=== PATIENT | male | born 1960 | race Caucasian/White ===

== ENCOUNTER 2022-01-10 08:15 | Observation (INO) ==
--- NOTE | 2021-12-21 15:57 | PAT Medication Instructions ---
Medication Instructions Date of Service December 21, 2021 Home Medications allopurinol 300 mg tablet 300 mg PO QAM esomeprazole magnesium 20 mg capsule,delayed release (Nexium) 20 mg PO QAM naproxen sodium 220 mg tablet 440 mg PO BID PRN omega-3 fatty acids 1,000 mg PO QAM ASK your surgeon for instructions naproxen sodium 220 mg tablet 440 mg PO BID PRN STOP taking 2 weeks before surgery (or as soon as possible if surgery is within 2 weeks) omega-3 fatty acids 1,000 mg PO QAM Take morning of surgery With a small sip of water, OTHERWISE NOTHING TO EAT OR DRINK AFTER MIDNIGHT: allopurinol 300 mg tablet 300 mg PO QAM esomeprazole magnesium 20 mg capsule,delayed release (Nexium) 20 mg PO QAM Other Notes If you have any questions please call us at [phone] or [phone] or [phone] or [phone]
--- NOTE | 2021-12-26 13:40 | Anesthesiology Consultation ---
Date of Service December 26, 2021 Assessment & Plan (1) Encounter for pre-operative examination: - COVID screening: Per assessment on : No known COVID-19 positive contacts or current COVID-19 related symptoms. Travel screen negative. Patient vaccinated. Surgeon arranging preop COVID testing. Awaiting results. - PCP office visit (12/20/21): "Pt had sleep study showing severe sleep apnea. Pulm recommended attended titration but insurance denied.. Explained risks of sleep apnea for his health in general but faviola w general anesthesia. Paperwork from [facility] says General/block for anesthesia. Clearance for surgery pending his apnea treatment and review of labs.. Pt may be having preop testing at [facility] on 12/27." Reviewed with patient that plan would likely be for SAB/block. Anesthesia questions/concerns addressed. 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 Patient subsequently seen by pulm who recommended CPAP. Patient states that there is current CPAP shortages and he is working with insurance to obtain device/start but has been having difficulties. Will forward preop testing to PCP and update them regarding patient's current issues with obtaining NACHO device. Awaiting final PCP clearance (Aliyah Desai PAC/PH Family medicine). Chart Review Chart Review: Patient seen in Pre Admission Testing Teaching & Discussion Pre-Anesthesia Teaching/Discussion Notes: Instructed NPO after midnight before surgery,except medications with 15 cc of water. Medication instructions provided according to the PAT guidelines. History Surgery Operation Date: 01/10/22 10:20 Proposed Procedures p Right Total Knee Arthroplasty - Dwight Patrica Kramer MD Height/Weight Height: 5 ft 6 in Weight: 125.6 kg Allergies Allergy/AdvReac Type Severity Reaction Status Date / Time No Known Allergies Allergy Verified 12/21/21 15:04 Medications Home Medications Medication Instructions Recorded Confirmed Last Taken allopurinol 300 mg tablet 300 mg PO QAM 12/21/21 12/21/21 Unknown calcium 500 mg tablet 500 mg PO QAM 12/21/21 12/21/21 Unknown chlorthalidone 25 mg tablet 25 mg PO QAM 12/21/21 12/21/21 Unknown cholecalciferol (vitamin D3) 25 25 mcg PO QAM 12/21/21 12/21/21 Unknown mcg (1,000 unit) tablet (Vitamin D3) citalopram 20 mg tablet 20 mg PO QAM 12/21/21 12/21/21 Unknown esomeprazole magnesium 20 mg 20 mg PO QAM 12/21/21 12/21/21 Unknown capsule,delayed release (Nexium) glucosamine sulf dipot 1 cap PO QAM 12/21/21 12/21/21 Unknown chlr,msm,chond 550 mg-C 30 mg-aston 1 mg capsule (Glucosamine Chondroitin) losartan 100 mg tablet 100 mg PO QAM 12/21/21 12/21/21 Unknown multivitamin 1 tab PO QAM 12/21/21 12/21/21 Unknown naproxen sodium 220 mg tablet 440 mg PO BID PRN 12/21/21 12/21/21 Unknown omega-3 fatty acids 1,000 mg PO QAM 12/21/21 12/21/21 Unknown Past Medical History Medical History Anxiety Chronic back pain GERD (gastroesophageal reflux disease) Gout Hyperlipidemia Hypertension Morbid obesity Osteoarthritis Sleep apnea Recently diagnosed by using a home test, pulmonary decided to rx CPAP > currently having shortage/issues obtaining Exercise / Class Metabolic Activity II 4-5 Yardwork/Stairs/Walk up hill (one FS (no CP, no SOB)) Past Family History Family History Other No family history of adverse response to anesthesia Past Surgical History Surgical History History of colonoscopy History of esophagogastroduodenoscopy (EGD) S/P right knee arthroscopy Past Anesthesia History No Hx of Anesthesia Complications and No Family Hx of Anesthesia Complications History of PONV No Hx of PONV and Hx of Motion Sickness Social History Smoking Status: Former smoker tobacco type: cigarettes Do You Dip or Chew Tobacco: No Smoking End Date: Quit 2009 Hx Alcohol Use: No Hx Substance Use: No Review of Systems Patient denies chest pain, shortness of breath, dyspnea on exertion, fever, chills, cough, wheezing, palpitations. Physical Exam Vital Signs VITALS BP 117/78 P 82 TEMP 98.3 SP02 96%RA RESP 16 PHYSICAL Full cervical extension range of motion. Full TMJ range of motion. TMD 4 finger breaths, macroglossia Mallampati Score 3 Dentition: missing molar Lungs: clear throughout to auscultation Cardiac: regular rate and rhythm, no murmurs noted Spine: normal Carotid arteries: negative bruit Extremities: no edema Short, thick neck Short franco Lab Results Anesthesia Preop Results Results Anesthesia Widget: WBC 7.74 K/uL (4.8-10.8) 12/26/21 Hgb 14.7 g/dL (14.0-18.0) 12/26/21 Hct 43.6 % (42-52) 12/26/21 Plt 307 K/uL (130-400) 12/26/21 Na 138 mmol/L (136-145) 12/26/21 K 3.7 mmol/L (3.5-5.1) 12/26/21 Cl 102 mmol/L (98-107) 12/26/21 CO2 26 mmol/L (21-32) 12/26/21 BUN 19 mg/dl (6-23) 12/26/21 Creat 1.00 mg/dl (0.6-1.4) 12/26/21 Glucose Level 92 mg/dl (70-99(Fasting)) 12/26/21 PT 10.7 Seconds (9.0-12.0) 12/26/21 PTT 26.0 Seconds (21.0-31.0) 12/26/21 INR 1.0 (0.9-1.1) 12/26/21 Blood Type A Positive 12/26/21 Antibody Screen NEGATIVE 12/26/21 Testing Electrocardiogram Date: 10/07/21 SR at 83bpm. unconfirmed report. Chest X-Ray Date: 12/26/21 Findings: + NAD
[~2022-01-10 08:15] MED LIST: ACETAMINOPHEN 500 MG TAB PO SCH; BUPIVACAINE 0.5 % 5 MG/1 ML PF 10ML VIAL ONE; CeleBREX 200 MG CAP PO SCH; GABAPENTIN 600 MG DOSE PO SCH; LR 500ML BOLUS, THEN 15ML/HR IV SCH; LR 60ML/HR IV SCH; ROPIVACAINE 0.5% 5 MG/ML 30 ML VIAL ONE; ROPIVACAINE 0.5% HCL/PF 150 MG, BUPIVACAINE 0.75% MPF 20 ML, EPINEPHrine 0.15 MG, Ketor... INFIL SCH; Scopolamine 1 MG TDSY TD SCH; TRANEXAMIC ACID 1,000 MG **IV Intra-op IV SCH; TRANEXAMIC ACID 1,000 MG **IV Pre-op IV SCH; ceFAZolin 2000MG 2,000 MG/15 ML SYR IV SCH; dexAMETHasone 4 MG TAB PO SCH; oxyCODONE HCL 10 MG TABCR (OxyCONTIN) PO SCH
[2022-01-10] MEDS ORDERED: DEXAMETHASONE SOD INJ 4 MG/ML VIAL ONE (08:28)
[2022-01-10] MEDS ORDERED: fentaNYL citrate 100 MCG/2 ML VIAL ONE (08:28)
[2022-01-10] MEDS ORDERED: MIDAZOLAM HCL 1 MG/ML 2ML VIAL ONE (08:28)
[2022-01-10] MEDS ORDERED: PROPOFOL IV EMULSION 10 MG/ML 20 ML VIAL IV ONE ×3 (08:28→12:48)
[2022-01-10] MEDS ORDERED: LIDOCAINE 2% 2 ML VIAL/AMP(20MG/ML) INFIL ONE (08:28)
[2022-01-10] MEDS ORDERED: fentaNYL citrate 100 MCG/2 ML VIAL IV PRN (09:05)
[2022-01-10] MEDS ORDERED: ePHEDrine sulfate 50 MG/ML AMP IV PRN (09:05)
[2022-01-10] MEDS ORDERED: ONDANSETRON INJ 2 MG/ML 2 ML VIAL IV PRN ×2 (09:05→13:07)
[2022-01-10] MEDS ORDERED: ATROPINE SULFATE 0.1 MG/ML 10ML SYR IV PRN (09:05)
--- NOTE | 2022-01-10 09:24 | History & Physical Bridge Note ---
Date of Service January 10, 2022 History & Physical Bridge Note I have examined the patient, reviewed the History & Physical and in the interval since the performance of the History & Physical I have noted the following changes of clinical significance: no changes noted Patient is aware of the risks, is asymptomatic, and tested negative for COVID.
[2022-01-10] MEDS ORDERED: ORTHO JOINT ANESTHETIC ONE (09:37)
[2022-01-10] MEDS ORDERED: KETAMINE 50 MG/5 ML SYRINGE ONE (10:42)
--- NOTE | 2022-01-10 12:50 | Post Operative Brief Note ---
Immediate Post Op Note v1 Date of Surgery January 10, 2022 Pre & Post Diagnosis Operation Date: 01/10/22 10:20 Pre-Op Diagnosis: Right Knee Osteoarthritis Post-Op Diagnosis: Right Knee Osteoarthritis I identified the patient and participated in the time-out.: Yes Procedure Operation Date: 01/10/22 10:20 Actual Procedures p Right Total Knee Arthroplasty(Right) - Dwight Kramer MD Surgeon Dwight Kramer MD General Utility Machine Operator M Day, PAC(No fellow avail) Estimated Blood Loss 110 Findings Consistent with Post-Op Diagnosis Fluids 2000 cc Specimens Right knee contents Anesthesia Type MAC Spinal Regional Complications none
--- NOTE | 2022-01-10 12:51 | Operative Report ---
Post Operative Report Pre & Post Diagnosis Operation Date: 01/10/22 10:20 Pre-Op Diagnosis: Right Knee Osteoarthritis Post-Op Diagnosis: Right Knee Osteoarthritis I identified the patient and participated in the time-out.: Yes Procedure Operation Date: 01/10/22 10:20 Actual Procedures p Right Total Knee Arthroplasty(Right) - Dwight Kramer MD Surgeon Dwight Kramer MD Vineyardist Nayana Mallory PA-C (No fellow avail) Estimated Blood Loss 110 Findings See Below Examined Under Anesthesia: ROM -- There was 5 degrees to 105 degrees of flexion Ligamentous examination -- revealed stable Darryl, posterior drawer, varus and valgus stress at 5 and 30 degrees. [place] Type IV changes of Medial compartment & Patellofemoral compartment, Type II changes lateral compartment. Fluids 2000 cc Specimens Right knee contents Anesthesia Type MAC Spinal Regional Complications none Indications This is a 61-year-old male who has clinical and radiographic findings consistent with osteoarthritis of the a right knee. I recommended that a right total knee replacement be performed. The patient understands the risks of surgery, which include but not limited to: bleeding, infection, re-operation, damage to nerves and arteries, continued knee pain, knee stiffness, DVT, and . The patient understands all of these instructions and explanations, all of his questions have been satisfactorily addressed and the patient has elected to proceed. Informed consent was signed. Description of Procedure IMPLANTS: 1. Femur: Triathlon #5 Right PS. 2. Tibia: Triathlon #4 [place]. 3. Insert: Triathlon #4 x 9 mm PS X3 poly. 4. Patella: Triathlon A38 x 11 mm X3 poly. 5. Simplex cement. Nayana Mallory PA-C is assisting with positioning, retracting, and closure due to fellow not available. Procedure: The patient was taken to the Operating Room and placed in the supine position after spinal and adductor canal nerve block was administered. My initials and a multidisciplinary time-out were used to identify the right leg as the correct operative limb. A tourniquet was placed high in the thigh. Prior to the incision, 2 grams of intravenous Ancef were given. The right leg was then prepped and draped in a standard sterile fashion. An Esmarch was used to exsanguinate the leg and the tourniquet was inflated to 250 mmHg. The planned mid-line 20 cm incision was created exposing the extensor mechanism. The medial parapatellar arthrotomy was made and the patella was everted. The patella was addressed first. It was prepared by reaming from 23 mm down to 12 mm. An A38 button was found to fit best. The peg holes were made in the standard fashion. The femur was addressed next and the guide david was placed intramedullary. The initial cutting block was placed with 5 degrees of valgus and removing 10 mm for the distal cut. The cut was made and the 4-in-1 cutting block for a size 5 femur was placed. These cuts and the cuts to place the box were made in the standard fashion. Our attention was then drawn to the tibia cut with the external cutting guide, taking 2 mm from the medial low side. There was sufficient extension and flexion gap to fit a 9 mm spacer. A #4 Tibial baseplate fit well. A trial with a 9 mm spacer showed excellent stability in both flexion and extension, with good ligament balance, and thumbs free patellar tracking. Range of motion of 0- 120 degrees. The tibial baseplate was prepped for the keel and stem. All the trial components were tested again, with good stability and thumbs free tracking of the patella. All components were removed. The tourniquet was deflated. Hemostasis was obtained. 90 ml of total knee cocktail were injected into the soft tissues and periosteum. A bone plug was placed in the femur and covered with bone wax. After a 15 minute break, the limb was exsanguinated again and the tourniquet was re-inflated. All surfaces were copiously irrigated prior to placement of the components. The femoral component followed by Tibial baseplate were cemented in place and the 9 mm X3 poly was placed. Next, the patellar button was placed using the same Simplex cement. Once the cement had cured, the range of motion and stability were unchanged. The extensor mechanism was closed with 1-0 and 0 Vicryl with the knee bent approximately 60 degrees in a standard fashion. The peritenon and deep fascia was closed with 2-0 Vicryl. The subcutaneous layer was closed with 3-0 Vicryl. The skin was closed with Zipline and shield. The limb was cleaned and dried. 4x4 dressing was placed over top followed by ABDs, sterile Webril, and a foot to thigh Jefry bandage. The patient was then transferred to the Recovery Room in stable condition. The sponge and needle counts were correct. POST-OP INSTRUCTIONS: The patient will be WBAT. The patient will be admitted to the hospital.Labs will be obtained during the stay. DVT prophylaxis will included aspirin for 6 weeks, TEDs, and mechanical foot pumps. The dressing will be changed prior to their discharge or postop day #2 and covered with a Silverlon dressing, whichever comes first. I attest to the content of the Intraoperative Record and any orders documented therein. Any exceptions are noted below.
[2022-01-10] MEDS ORDERED: NALOXONE HCL 0.4 MG/1 ML VIAL/CARP IV PRN (13:07)
[2022-01-10] MEDS ORDERED: bisacodyL 10 MG SUPP PR PRN (13:07)
[2022-01-10] MEDS ORDERED: MAGNESIUM HYDROXIDE SUSP 30 ML UDC PO PRN (13:07)
[2022-01-10] MEDS ORDERED: METOCLOPRAMIDE HCL INJ 5 MG/ML 2 ML VIAL IV PRN (13:07)
[2022-01-10] MEDS ORDERED: HYDROmorphone INJ 0.5 MG/0.5 ML SYR IV PRN (13:07)
--- NOTE | 2022-01-10 13:07 | Operative Report ---
Post Operative Report Pre & Post Diagnosis Operation Date: 01/10/22 10:20 Pre-Op Diagnosis: Right Knee Osteoarthritis Post-Op Diagnosis: Right Knee Osteoarthritis I identified the patient and participated in the time-out.: Yes Procedure Operation Date: 01/10/22 10:20 Actual Procedures p Right Total Knee Arthroplasty(Right) - Dwight Kramer MD Surgeon Dr Dwight Kramer Director Pharmacovigilance M Day, PAC(No fellow avail) Estimated Blood Loss 110 Findings Consistent with Post-Op Diagnosis Specimens none Description of Procedure Pt was taken to operating room, placed under MAC and spinal anesthesia. Pt was given 2g Ancef IV. Prepped and draped in sterile fashion. I was present during the entire case and assisted with positioning, instrumentation, closure and dressings. Please see Dr. Kramer's op report for further detail. Pt was awake and transferred to PACU in stable condition I attest to the content of the Intraoperative Record and any orders documented therein. Any exceptions are noted below.
--- NOTE | 2022-01-10 13:36 | Anesthesiology Progress Note ---
Date of Service January 10, 2022 Anesthesia Post Procedure Vital Signs Vital Signs: Temp Pulse Pulse Resp BP Pulse Ox 01/10/22 13:33 98.8 F 70 14 121/78 98 01/10/22 13:20 70 15 115/77 97 01/10/22 13:10 78 16 116/72 97 01/10/22 13:03 98.1 F 76 13 118/71 96 01/10/22 08:49 98.1 F 74 20 138/91 97 Transfer of Care Handoff Completed per policy Notes Mental Status: alert / awake / arousable and participated in evaluation Patient Amnestic to Procedure: Yes Nausea / Vomiting: adequately controlled Pain: adequately controlled Airway Patency, RR, SpO2: stable & adequate BP & HR: stable & adequate Hydration State: stable & adequate Neuraxial Anesthesia: was administered and sensory block is resolving Anesthetic Complications: no major complications apparent and Pt Satisfied with anesthetic care
--- NOTE | 2022-01-10 13:39 | XRay Report ---
TWO VIEWS RIGHT KNEE CLINICAL HISTORY: Postoperative examination. FINDINGS: AP and crosstable lateral portable views of the right knee are obtained. A right knee arthr oplasty is in near anatomic alignment. There has been undersurface remodeling of the patella. No acut e fracture is seen. There are expected postoperative changes around the knee including soft tissue ed omid and subcutaneous gas. IMPRESSION: Expected postoperative changes status post right knee arthroplasty. No acute fracture is seen. ACT 112: Negative or not required by law. Electronically signed by: Terence Hope M.D. 01/10/2022 1:37 PM
[2022-01-10] MEDS ORDERED: Scopolamine CHECK PATCH PLACEMENT SCH (16:00)
[2022-01-10] MEDS: SODIUM CHLORIDE 0.9% 1000ML 1,000 ML IV SCH (16:06)
[2022-01-10] MEDS: ACETAMINOPHEN 500 MG TAB PO SCH ×2 (17:27→21:52)
[2022-01-10] MEDS: ASCORBIC ACID 500 MG TAB PO SCH (17:28)
[2022-01-10] MEDS: FERROUS GLUCONATE 324 MG TAB PO SCH (17:29)
[2022-01-10] MEDS: DOCUSATE SODIUM 100 MG CAP PO SCH (20:10)
[2022-01-10] MEDS: SENNA 8.6 MG TAB PO SCH (20:12)
[2022-01-10] MEDS: ASPIRIN 81 MG ECTAB PO SCH (20:12)
[2022-01-10] MEDS: ceFAZolin 2000MG 2,000 MG/15 ML SYR IV SCH (21:52)
[2022-01-11] MEDS: SODIUM CHLORIDE 0.9% 1000ML 1,000 ML IV SCH (02:20)
[2022-01-11] MEDS: oxyCODONE HCL IR 5 MG TAB (IMMEDIATE RELEASE) PO PRN ×3 (03:40→21:22)
[2022-01-11] MEDS: ACETAMINOPHEN 500 MG TAB PO SCH ×3 (05:48→21:22)
[2022-01-11] MEDS: ceFAZolin 2000MG 2,000 MG/15 ML SYR IV SCH (05:49)
[2022-01-11 07:21] LABS: Hematocrit (blood only) 37.1 % (42-52); Hemoglobin 12.3 g/dL (14.0-18.0); Mean Corpuscular Hemoglobin 30.4 pg (25-34); Mean Corpuscular Hgb Conc 33.2 g/dL (32-36); Mean Corpuscular Volume 91.8 fL (80-100); Mean Platelet Volume 11.9 fL (7.4-10.4); Platelet Count 293 K/uL (130-400); RDW Coefficient of Variation 13.3 % (11.5-14.5); RDW Standard Deviation 44.8 fL (36.4-46.3); Red Blood Count 4.04 M/uL (4.7-6.1); White Blood Count 15.35 K/uL (4.8-10.8)
[2022-01-11 07:45] LABS: BUN Creatinine Ratio 21.9 (10-20); Calcium 8.6 mg/dl (8.5-10.1); Est GFR (African American) 97.1 ml/min; Est GFR (Non-African American) 83.8 ml/min; Potassium 3.9 mmol/L (3.5-5.1)
[2022-01-11] MEDS: ASPIRIN 81 MG ECTAB PO SCH ×2 (08:33→20:11)
[2022-01-11] MEDS: OMEGA-3 (PURIFIED FISH OIL) 1 GM CAP PO SCH (08:34)
[2022-01-11] MEDS: DOCUSATE SODIUM 100 MG CAP PO SCH ×2 (08:34→19:29)
[2022-01-11] MEDS: allopurinoL 300 MG TAB PO SCH (08:34)
[2022-01-11] MEDS: FERROUS GLUCONATE 324 MG TAB PO SCH ×2 (08:34→17:06)
[2022-01-11] MEDS: CITALOPRAM 20 MG TAB PO SCH (08:34)
[2022-01-11] MEDS: CHLORTHALIDONE 25 MG TAB PO SCH (08:34)
[2022-01-11] MEDS: PANTOprazole 40 MG TAB PO SCH (08:34)
[2022-01-11] MEDS: LOSARTAN POTASSIUM 50 MG TAB PO SCH (08:34)
[2022-01-11] MEDS: ASCORBIC ACID 500 MG TAB PO SCH ×2 (08:35→17:06)
[2022-01-11] MEDS ORDERED: OMEGA-3 (PURIFIED FISH OIL) 1 GM CAP PO SCH (09:00)
--- NOTE | 2022-01-11 10:07 | Orthopedic Progress Note ---
Date of Service January 11, 2022 Assessment & Plan (1) Osteoarthritis of right knee: Plan: POD #1 s/p R TKA, doing as well as expected. Resume diet. WBAT with walker. OOB to chair. Continue pain control. Check labs tomorrow. DVT prophylaxis: TEDs 3 weeks, foot pumps while in hospital, ASA 81 mg BID for 6 weeks. PT/OT. D/C planning. Will re-evaluate in the pm to see if passes PT and pain controlled for possible discharge home. Will change dressing if able to be discharged. Present on Admission?: Yes Admission and Anticipated Discharge Date Admission Date: January 10, 2022 Subjective Right knee pain, controlled with oral pain meds. Review of Systems Review of Systems: All systems reviewed & are unremarkable except as noted in HPI & below Physical Exam Physical Exam: RLE: BCR < 2 sec. Sensation to light touch intact distally. Wiggling ankle and toes. Calf soft and non-tender. Dressing is clean, dry, intact. Results & Data ([facility] [place]) Vital Signs (Past 12 Hours) Vital Signs Temp Pulse Pulse Resp BP Pulse Ox 01/11/22 07:55 36.8 C 78 18 111/69 95 01/11/22 03:30 36.6 C 96 H 16 114/68 94 01/10/22 22:22 37.1 C 96 H 16 115/71 94 Laboratory Results 01/11/22 01/11/22 01/10/22 Range/Units 06:37 06:37 09:12 WBC 15.35 H (4.8-10.8) K/uL RBC 4.04 L (4.7-6.1) M/uL Hgb 12.3 L (14.0-18.0) g/dL Hct 37.1 L (42-52) % MCV 91.8 (80-100) fL MCH 30.4 (25-34) pg MCHC 33.2 (32-36) g/dL RDW Std Deviation 44.8 (36.4-46.3) fL RDW Coeff of Ceci 13.3 (11.5-14.5) % Plt Count 293 (130-400) K/uL MPV 11.9 H (7.4-10.4) fL Sodium 134 L (136-145) mmol/L Potassium 3.9 (3.5-5.1) mmol/L Chloride 104 (98-107) mmol/L Carbon Dioxide 23 (21-32) mmol/L Anion Gap 7 (3-11) BUN 21 (6-23) mg/dl Creatinine 0.96 (0.6-1.4) mg/dl Est Cr Clr Drug Dosing 100.0 ml/min Est GFR ( Amer) 97.1 ml/min Est GFR (Non-Af Amer) 83.8 ml/min BUN/Creatinine Ratio 21.9 H (10-20) Glucose 173 H (70-99(Fasting)) mg/dl Calcium 8.6 (8.5-10.1) mg/dl Blood Type A Positive Antibody Screen NEGATIVE Diagnostic Findings I reviewed the AP & lateral of the right knee which showed expected findings s/p R TKA.
--- NOTE | 2022-01-11 10:32 | Discharge Summary ---
Date of Service January 11, 2022 Admission HPI Per Admitting Provider Pt was seen and examined bedside. POD #2 s/p total knee arthroplasty. Pt was admitted last night for observation. No major events over night. Vitals are stable. Labs unremarkable. X-rays show normal post operative changed. Pt reports they are doing well and pain is controlled. They are tolerating PO intake and voiding adequate amounts. Working well with PT/OT. Pt denies F/C, N/V/D, SOB, CP. Pt deemed medically stable and ready for discharge. Principal Diagnosis right knee primary osteoarthritis s/p right total knee arthroplasty Discharge Exam General: Pt laying in hospital bed AA&O, in NAD, calm and cooperative during exam Lower Extremity: Dressing in tact and not saturated. Incisions clean, dry and with minimal drainage and no surrounding erythema, warmth or purulent drainage. Pt has full ROM of ankle and all 5 digits. Pt has 5/5 strength with resisted DF/PF. SLR in tact. Calf supple and non tender. NVI with sensation to light touch distally and good distal pulses present. Lower extremity noted to have good color and temperature with no signs of vascular or lymphatic insufficiency. Discharge Data Allergies Allergy/AdvReac Type Severity Reaction Status Date / Time No Known Allergies Allergy Verified 01/10/22 08:44 Consultations 01/05/22 14:41 Consult Hospitalist Routine Procedures Performed Operation Date: 01/10/22 10:20 Actual Procedures p Right Total Knee Arthroplasty(Right) - Dwight Kramer MD Ordered Studies 01/10/22 05:00 US - OR guided needle placemen Routine Hospital Course (1) Osteoarthritis of right knee: -Pt deemed medically stable for discharge -Weight bearing as tolerated with walker to assist in ambulation -Home health/PT x 2 weeks. You will receive home exercises to do on your own for the first two weeks from home PT. Please do these exercises 3 times a day. -Frequently ice, at least 15 minutes 4 times a day. -Elevate operative leg above your heart with pillows/blankets underneath your ankle, never under your knee. This helps to keep the knee in extension and prevent a flexion contracture. -You may shower on Post op Day 3. Leave Mepilex dressing in tact until follow up appt in 2 weeks. Your dressing is water-resistant, meaning you can shower with it on as long as it is in-tact. Letting some running water run over top of it from the shower is okay. You cannot submerge your incision in water. No baths, hot tubs or swimming pools. Keep dressing clean and dry. If your dressing starts to peel off or gets moisture under it after 7 days, home health nurse may reinforce as needed. -DVT prophylaxis: Aspirin 81mg twice a day for 6 weeks, MERLENE compression stockings for 3 weeks -While taking Aspirin, if you start to get upset stomach, we recommend taking over the counter Pepcid, 20mg twice a day as long as you are taking the Aspirin -Pain control: oxycodone 5mg every 4-6 hours as needed, Tylenol 500-1000mg every 8 hours -To promote healing, please take 500mg Vitamin C twice a day with meals x 2 weeks and Iron 325 mg twice a day with meals x 2 weeks -While on narcotic pain medication and iron supplement, we recommend you take a stool softener to prevent constipation -Follow up as scheduled in 2 weeks with [facility] for post op evaluation and Zip-line removal. Please call out office sooner if you have any questions or concerns Total Time Total Time Spent Total Time Spent (In Minutes): 30 minutes Discharge Plan Discharge Items Patient Disposition: Home - Home Health Services Reason For Visit: Right Knee Osteoarthritis Discharge Diagnosis: same as above Activity: Per Instructions section Non-emergency contact: Surgeon Call non-emergency contact if: you have any medication questions, your pain is not controlled, your temperature is above 101.5, your wound has increased redness and your wound has increased drainage Follow-up/Referrals: Moe Nguyen DO [Primary Care Provider] - Mildred Mallory PA-C [Physician Fish Net Maker] - Diet: Regular Addtl Attending Provider Instructions: ORTHOPEDIC DISCHARGE INSTRUCTIONS -Weight bearing as tolerated with walker to assist in ambulation -Home health/PT x 2 weeks. You will receive home exercises to do on your own for the first two weeks from home PT. Please do these exercises 3 times a day. -Frequently ice, at least 15 minutes 4 times a day. -Elevate operative leg above your heart with pillows/blankets underneath your ankle, never under your knee. This helps to keep the knee in extension and prevent a flexion contracture. -You may shower on Post op Day 3. Leave Mepilex dressing in tact until follow up appt in 2 weeks. Your dressing is water-resistant, meaning you can shower with it on as long as it is in-tact. Letting some running water run over top of it from the shower is okay. You cannot submerge your incision in water. No baths, hot tubs or swimming pools. Keep dressing clean and dry. If your dressing starts to peel off or gets moisture under it after 7 days, home health nurse may reinforce as needed. -DVT prophylaxis: Aspirin 81mg twice a day for 6 weeks, MERLENE compression stockings for 3 weeks -While taking Aspirin, if you start to get upset stomach, we recommend taking over the counter Pepcid, 20mg twice a day as long as you are taking the Aspirin -Pain control: oxycodone 5mg every 4-6 hours as needed, Tylenol 500-1000mg every 8 hours -To promote healing, please take 500mg Vitamin C twice a day with meals x 2 weeks and Iron 325 mg twice a day with meals x 2 weeks -While on narcotic pain medication and iron supplement, we recommend you take a stool softener to prevent constipation -Follow up as scheduled in 2 weeks with [facility] for post op evaluation and Zip-line removal. Please call our office sooner @ [phone] if you have any questions or concerns Pending Studies at Discharge: No Stand-Alone Forms: My [facility], Smoking Cessation Medications and DC Order Prescriptions: New ferrous gluconate 324 mg (38 mg iron) Tablet 324 mg PO BIDM 14 Days Qty: 28 RF: 0 acetaminophen [Tylenol Extra Strength] 500 mg Tablet 1,000 mg PO Q8 30 Days Qty: 180 RF: 0 aspirin 81 mg Tablet,Delayed Release (Dr/Ec) 81 mg PO BID 42 Days Qty: 84 RF: 0 oxycodone 5 mg Tablet 5 mg PO Q6H PRN (Reason: post op pain control) Qty: 18 RF: 0 ascorbic acid (vitamin C) [Vitamin C] 500 mg Tablet 500 mg PO BIDM 14 Days Qty: 28 RF: 0 docusate sodium 100 mg Capsule 100 mg PO BID 10 Days Qty: 20 RF: 0 Continued esomeprazole magnesium [Nexium] 20 mg Capsule,Delayed Release(Dr/Ec) 20 mg PO QAM RF: 0 allopurinol 300 mg Tablet 300 mg PO QAM RF: 0 omega-3 fatty acids Capsule 1,000 mg PO QAM RF: 0 multivitamin Tablet 1 tab PO QAM RF: 0 calcium 500 mg Tablet 500 mg PO QAM RF: 0 chlorthalidone 25 mg Tablet 25 mg PO QAM RF: 0 citalopram 20 mg Tablet 20 mg PO QAM RF: 0 losartan 100 mg Tablet 100 mg PO QAM RF: 0 cholecalciferol (vitamin D3) [Vitamin D3] 25 mcg (1,000 unit) Tablet 25 mcg PO QAM RF: 0 Glucosamine Chondroitin 550-30-1 mg Capsule 1 cap PO QAM RF: 0 Discontinued naproxen sodium 220 mg Tablet 440 mg PO BID PRN (Reason: Pain) RF: 0 Discharge Orders: Discharge Order (Routine); Ordered 01/12/22 Ordered By: Mildred Mallory Admission Data Admit Date/Time: 01/10/22 13:07 Attending Provider: Dwight Kramer Admit Provider: Dwight Kramer Primary Care Provider: Moe Nguyen Other Providers: Patrick Morales
--- NOTE | 2022-01-11 10:55 | Hospitalist Consultation ---
Date of Consultation January 11, 2022 Assessment & Plan (1) Osteoarthritis of right knee: Doing well from surgical and medical standpoint. No acute changes in his medical status. Labs show a mild leukocytosis, likely from his tate-operative steroids and stress. Stable to discharge with normal home meds. History of Present Illness Attending Physician: Dwigth Kramer MD History of Present Illness 61yo M w/ hx of HTN who present as a medical consult after a Right Total Knee Arthroplasty(Right) - Dwight Kramer MD on 01/10. Doing well overall. No real pain today. Has not been up yet, but feels well and is anxious to go home. Allergies Allergy/AdvReac Type Severity Reaction Status Date / Time No Known Allergies Allergy Verified 01/10/22 08:44 Home Medications Medication Instructions Recorded Confirmed Type allopurinol 300 mg tablet 300 mg PO QAM 12/21/21 01/10/22 History calcium 500 mg tablet 500 mg PO QAM 12/21/21 01/10/22 History chlorthalidone 25 mg tablet 25 mg PO QAM 12/21/21 01/10/22 History cholecalciferol (vitamin D3) 25 25 mcg PO QAM 12/21/21 01/10/22 History mcg (1,000 unit) tablet (Vitamin D3) citalopram 20 mg tablet 20 mg PO QAM 12/21/21 01/10/22 History esomeprazole magnesium 20 mg 20 mg PO QAM 12/21/21 01/10/22 History capsule,delayed release (Nexium) glucosamine sulf dipot 1 cap PO QAM 12/21/21 01/10/22 History chlr,msm,chond 550 mg-C 30 mg-aston 1 mg capsule (Glucosamine Chondroitin) losartan 100 mg tablet 100 mg PO QAM 12/21/21 01/10/22 History multivitamin 1 tab PO QAM 12/21/21 01/10/22 History omega-3 fatty acids 1,000 mg PO QAM 12/21/21 01/10/22 History acetaminophen 500 mg tablet 1,000 mg PO Q8 30 Days #180 tab 01/11/22 Rx (Tylenol Extra Strength) ascorbic acid (vitamin C) 500 mg 500 mg PO BIDM 14 Days #28 tab 01/11/22 Rx tablet (Vitamin C) aspirin 81 mg tablet,delayed 81 mg PO BID 42 Days #84 tab 01/11/22 Rx release docusate sodium 100 mg capsule 100 mg PO BID 10 Days #20 cap 01/11/22 Rx ferrous gluconate 324 mg (38 mg 324 mg PO BIDM 14 Days #28 tab 01/11/22 Rx iron) tablet oxycodone 5 mg tablet 5 mg PO Q6H PRN #18 tab 01/11/22 Rx Patient History Medical History Anxiety Chronic back pain GERD (gastroesophageal reflux disease) Gout Hyperlipidemia Hypertension Morbid obesity Osteoarthritis Osteoarthritis of right knee Sleep apnea Recently diagnosed by using a home test, pulmonary decided to rx CPAP > currently having shortage/issues obtaining Surgical History History of colonoscopy History of esophagogastroduodenoscopy (EGD) S/P right knee arthroscopy Family History Other No family history of adverse response to anesthesia Social History Smoking Status: Former smoker Smoking End Date: Quit 2009; Second Hand Exposure: No; Do You Dip or Chew Tobacco: No; Tobacco Cessation Education Requested by Patient: No Hx Alcohol Use: No Hx Substance Use: No Preferred Language: Nicaraguan Communication Ability: Effective Tool Inspector Required: No Beliefs That Will Affect Care: None Current Living Situation: Spouse and Family Other Information That Helps Us Care for You: No Feels Safe at Home: Yes Safety Concerns: Feels Safe At This Time Assistive Devices: Glasses Review of Systems Review of Systems: All systems reviewed & are unremarkable except as noted in HPI & below Physical Exam Constitutional: WD/WN, vitals as above Eyes: EOM intact bilaterally; no conjunctival abnormality ENMT: external ear and nose normal, oropharynx normal Neck: trachea midline, no thyromegaly normal visual inspection Respiratory: normal respiratory effort, lungs clear to auscultation no respiratory distress Cardiovascular: RRR, no murmur, no edema Gastrointestinal (Abdomen): Inspection/Auscultation: abdomen normal to inspection; abdomen not distended Musculoskeletal: no cyanosis or clubbing, extremities motor strength 5/5 Skin: no rashes, warm and dry Neurologic: moves all extremities and awake Psychiatric: Orientation: alert, oriented to person and cooperative Results & Data Results & Data ([place]) Vital Signs (Past 12 Hours) Vital Signs Temp Pulse Pulse Resp BP Pulse Ox 01/11/22 07:55 36.8 C 78 18 111/69 95 01/11/22 03:30 36.6 C 96 H 16 114/68 94 PG Care Time/CCT Total # of Minutes Spent Total Time Spent with Patient: Total time spent is greater than 50% in coordination of care (as documented) at patient's floor/unit and/or counseling patient: Coding Level of Care Code 53611 Office/OBS Consult Lvl 2 Diagnoses Osteoarthritis of right knee M17.11
--- NOTE | 2022-01-11 13:40 | Orthopedic Progress Note ---
Date of Service January 11, 2022 Assessment & Plan (1) Osteoarthritis of right knee: Plan: POD1 s/p total knee arthroplasty WBAT with walker PT/OT Diet - regular Frequently ice and elevate with blankets stacked under ankle DVT prophylaxis: ASA 81mg BID x 6 weeks, TEDS x 3 weeks, foot pumps while in hospital Pain control: Tylenol 1000mg q 8hrs, oxycodone 5-10mg q4-6 hrs for moderate pain, Dilaudid 0.5mg IV for severe/breakthrough pain Vitamin C and Iron supplementation BID x 2 weeks Dressing: will change dressing to Mepilex dressing that patient can leave in- tact until f/u Discharge home with home health x 2 weeks -Pt anxious and not deemed ready to go home. Will stay another night for pain control and a few more sessions with PT Admission and Anticipated Discharge Date Admission Date: January 10, 2022 Subjective Pt was seen and examined bedside. POD #1 s/p total knee arthroplasty. Pt says that PT went "okay". He reports that he is very anxious and doesnt feel comfortable going home yet. Pain 8/10. Reports constant, dull achey pain. Reports some difficulty with transfers and ambulating. Labs stable. Pt BP slightly high 155/81. WBC 15, likely due to stress of surgery, pain and steroids given intra-op. Pt denies F/C, N/V/D, SOB, CP. Physical Exam Physical Exam: General: Pt laying in hospital bed AA&O, in NAD, calm and cooperative during exam Lower Extremity: Dressing in tact and not saturated.Pt has full ROM of ankle and all 5 digits. Pt has 5/5 strength with resisted DF/PF. SLR in tact. Calf supple and non tender. NVI with sensation to light touch distally and good distal pulses present. Lower extremity noted to have good color and temperature with no signs of vascular or lymphatic insufficiency. Results & Data ([facility]) Vital Signs (Past 12 Hours) Vital Signs Temp Pulse Pulse Resp BP Pulse Ox 01/11/22 11:55 36.7 C 77 18 155/81 H 95 01/11/22 07:55 36.8 C 78 18 111/69 95 01/11/22 03:30 36.6 C 96 H 16 114/68 94 Laboratory Results 01/11/22 01/11/22 Range/Units 06:37 06:37 WBC 15.35 H (4.8-10.8) K/uL RBC 4.04 L (4.7-6.1) M/uL Hgb 12.3 L (14.0-18.0) g/dL Hct 37.1 L (42-52) % MCV 91.8 (80-100) fL MCH 30.4 (25-34) pg MCHC 33.2 (32-36) g/dL RDW Std Deviation 44.8 (36.4-46.3) fL RDW Coeff of Ceci 13.3 (11.5-14.5) % Plt Count 293 (130-400) K/uL MPV 11.9 H (7.4-10.4) fL Sodium 134 L (136-145) mmol/L Potassium 3.9 (3.5-5.1) mmol/L Chloride 104 (98-107) mmol/L Carbon Dioxide 23 (21-32) mmol/L Anion Gap 7 (3-11) BUN 21 (6-23) mg/dl Creatinine 0.96 (0.6-1.4) mg/dl Est Cr Clr Drug Dosing 100.0 ml/min Est GFR ( Amer) 97.1 ml/min Est GFR (Non-Af Amer) 83.8 ml/min BUN/Creatinine Ratio 21.9 H (10-20) Glucose 173 H (70-99(Fasting)) mg/dl Calcium 8.6 (8.5-10.1) mg/dl
[2022-01-11] MEDS: SENNA 8.6 MG TAB PO SCH (19:29)
[2022-01-12] MEDS: oxyCODONE HCL IR 5 MG TAB (IMMEDIATE RELEASE) PO PRN ×3 (02:23→13:04)
[2022-01-12] MEDS: ACETAMINOPHEN 500 MG TAB PO SCH (05:37)
[2022-01-12] MEDS: allopurinoL 300 MG TAB PO SCH (07:45)
[2022-01-12] MEDS: FERROUS GLUCONATE 324 MG TAB PO SCH (07:45)
[2022-01-12] MEDS: OMEGA-3 (PURIFIED FISH OIL) 1 GM CAP PO SCH (07:45)
[2022-01-12] MEDS: ASCORBIC ACID 500 MG TAB PO SCH (07:45)
[2022-01-12] MEDS: PANTOprazole 40 MG TAB PO SCH (07:45)
[2022-01-12] MEDS: CHLORTHALIDONE 25 MG TAB PO SCH (07:45)
[2022-01-12] MEDS: ASPIRIN 81 MG ECTAB PO SCH (07:45)
[2022-01-12] MEDS: LOSARTAN POTASSIUM 50 MG TAB PO SCH (07:46)
[2022-01-12] MEDS: CITALOPRAM 20 MG TAB PO SCH (07:46)
[2022-01-12] MEDS: DOCUSATE SODIUM 100 MG CAP PO SCH (07:46)
--- NOTE | 2022-01-12 08:14 | Orthopedic Progress Note ---
Date of Service January 12, 2022 Assessment & Plan (1) Osteoarthritis of right knee: Plan: -Pt deemed medically stable for discharge -Weight bearing as tolerated with walker to assist in ambulation -Home health/PT x 2 weeks. You will receive home exercises to do on your own for the first two weeks from home PT. Please do these exercises 3 times a day. -Frequently ice, at least 15 minutes 4 times a day. -Elevate operative leg above your heart with pillows/blankets underneath your ankle, never under your knee. This helps to keep the knee in extension and prevent a flexion contracture. -You may shower on Post op Day 3. Leave Mepilex dressing in tact until follow up appt in 2 weeks. Your dressing is water-resistant, meaning you can shower with it on as long as it is in-tact. Letting some running water run over top of it from the shower is okay. You cannot submerge your incision in water. No baths, hot tubs or swimming pools. Keep dressing clean and dry. If your dressing starts to peel off or gets moisture under it after 7 days, home health nurse may reinforce as needed. -DVT prophylaxis: Aspirin 81mg twice a day for 6 weeks, MERLENE compression stockings for 3 weeks -While taking Aspirin, if you start to get upset stomach, we recommend taking over the counter Pepcid, 20mg twice a day as long as you are taking the Aspirin -Pain control: oxycodone 5mg every 4-6 hours as needed, Tylenol 500-1000mg every 8 hours -To promote healing, please take 500mg Vitamin C twice a day with meals x 2 weeks and Iron 325 mg twice a day with meals x 2 weeks -While on narcotic pain medication and iron supplement, we recommend you take a stool softener to prevent constipation -Follow up as scheduled in 2 weeks with [facility] for post op evaluation and Zip-line removal. Please call out office sooner if you have any questions or concerns Admission and Anticipated Discharge Date Admission Date: January 10, 2022 Supervising Physician Co-Signing Physician Notes I, Dr. Kramer, saw and examined the patient, changed the dressing. The incision was clean, dry, intact and showed no evidence of infection. I agree with the above findings and plan of care that I discussed with my PA. Subjective Pt was seen and examined bedside. POD #2 s/p total knee arthroplasty. No major events over night. Vitals are stable. Labs unremarkable. X-rays show normal post operative changed. Pt reports they are doing well and pain is controlled. They are tolerating PO intake and voiding adequate amounts. Working well with PT/OT. Pt denies F/C, N/V/D, SOB, CP. Pt deemed medically stable and ready for discharge. Physical Exam Physical Exam: General: Pt laying in hospital bed AA&O, in NAD, calm and cooperative during exam Lower Extremity: Mepilex dressing in tact and not saturated. Pt has full ROM of ankle and all 5 digits. Pt has 5/5 strength with resisted DF/PF. SLR in tact. Calf supple and non tender. NVI with sensation to light touch distally and good distal pulses present. Lower extremity noted to have good color and temperature with no signs of vascular or lymphatic insufficiency. Results & Data ([facility]) Vital Signs (Past 12 Hours) Vital Signs Temp Pulse Resp BP BP Pulse Ox 01/12/22 08:10 36.7 C 72 18 124/78 97 01/11/22 21:18 36.8 C 73 18 119/80 96
== END 2022-01-12 14:53 | disposition home health service (06) ==
LOC: PACUINP 08:15 → ASU 08:15 → 3W 16:06